=== PATIENT | male | born 1980 | race Caucasian/White ===

== ENCOUNTER 2017-05-04 11:30 | Emergency (ER) | payer SELFPAY ==
[~2017-05-04] VITALS: Ht 185.4 cm; Wt 82.0 kg
[2017-05-04 11:31] VITALS: BP 145/80; PULSE 83; TEMP 37; O2SAT 98; Ht 185.4 cm; Wt 82.0 kg
--- NOTE | 2017-05-04 11:55 | EMERGENCY ROOM VISIT NOTE ---
ED Visit Note First contact with patient: 11:38 CHIEF COMPLAINT: Right hand injury today HISTORY OF PRESENT ILLNESS: This 36-year-old male was sent here by [facility] for a fracture of his right fifth metacarpal. The patient states that his hand got smashed by a cow earlier today. The patient states that he is able to move his fingers without difficulty. He denies any numbness and tingling in his fingers. The patient is right-hand dominant. The patient states that he was sent here by [facility] for evaluation by orthopedics. REVIEW OF SYSTEMS: 6 system review was performed and was negative unless stated otherwise in history of present illness. PMH: The patient is healthy; there is no significant medical or surgical history. SOCIAL HISTORY: Patient lives with his . The patient denies any tobacco or alcohol use. PHYSICAL EXAM: Vital Signs: Were reviewed reviewed Nurse's notes. general: 36- year-old white male appears in no acute distress. MENTAL Status: Alert and oriented 3. RIGHT HAND: There is swelling over the dorsal aspect of the hand at the region of the proximal third through fifth metacarpals. The patient is able to move all fingers without difficulty. Sensation is intact. EMERGENCY DEPARTMENT COURSE: The patient was evaluated. The patient's x-ray was visualized on synapse. There is a fracture at the base of the fifth metacarpal. The patient was placed in an ulnar gutter splint. I informed the patient that we do not call orthopedics in for fractures and less they are complicated or open. They verbalized understanding. The patient was discharged to home in stable condition. DIAGNOSIS: fracture of the right 5th metacarpal DISCHARGE INSTRUCTIONS AND TREATMENT: Ice to and elevation of the hand frequently over the next 2 days. Ibuprofen 600 mg every 6 hours with food for pain. Keep hand in splint until evaluated by orthopedics. Call Dr. Santacruz on Saturday for follow-up appointment. Vital Signs Date Time Temp Pulse Resp B/P (MAP) Pulse Ox O2 Delivery O2 Flow Rate FiO2 05/04/17 11:31 37.0 83 16 145/80 98 Departure Information Referrals No Doctor, Assigned (PCP) Patient Instructions [facility]
== END 2017-05-04 12:05 | disposition home or self-care (01) ==
LOC: C.EDB 11:32 → C.EDD 12:05
DX: S62.311A Displaced fracture of base of second metacarpal bone, left hand, initial encounter for closed fracture (principal); W55.22XA Struck by cow, initial encounter